=== PATIENT | male | born 1950 | race Caucasian/White ===

== ENCOUNTER 2018-08-27 09:55 | Day surgery (SDC) | payer OTHER ==
[2018-08-27] MEDS ORDERED: PROPOFOL 40 ML (12:26)
== END 2018-08-27 13:25 | disposition home or self-care (01) ==
LOC: GIL 09:55
DX: K21.9 Gastro-esophageal reflux disease without esophagitis (principal); K29.70 Gastritis, unspecified, without bleeding; E78.5 Hyperlipidemia, unspecified; E03.9 Hypothyroidism, unspecified; Z79.82 Long term (current) use of aspirin
CPT/HCPCS: 43239; 88305; 88312